=== PATIENT | male | born 1965 | race Caucasian/White ===

== ENCOUNTER → 2016-08-11 | Outpatient (CLI) | payer OTHER ==
[~2016-08-11] MED LIST: ATV/1 PO; CALC500C3 PO; CYCL10TA6 PO; DICL50TA3 PO; GABA-112 PO; LANS15CA6 PO; OXYC-57 PO; RXC5 PO
--- NOTE | 2016-08-11 10:39 | DIAGNOSTIC IMAGING REPORT ---
MRI OF THE CERVICAL SPINE WITHOUT CONTRAST CLINICAL HISTORY: Cervical radiculopathy. COMPARISON: None TECHNIQUE: Utilizing a 1.5 Sayra magnet and dedicated coil, multiplanar, multiecho imaging of the cervical spine was performed without IV contrast. FINDINGS: There is reversal of the normal cervical lordosis. Vertebral body heights are maintained. There is no marrow replacement. No intracanalicular mass or fluid collection is present. Cervical cord signal and caliber are normal. The paravertebral soft tissues are unremarkable. C2-C3: The central canal and neural foramen are patent. C3-C4: There is disc space narrowing with posterior osteophyte complex that indents the ventral aspect of the cord and results in moderate narrowing of the central canal. There is moderate bilateral neural foraminal stenosis due to facet arthrosis and uncovertebral hypertrophy. C4-C5: There is minimal posterior disc osteophyte complex. The central canal is patent. The neural foramen are patent. C5-C6: There is mild posterior disc osteophyte complex results in mild narrowing of the central canal. There is moderate narrowing of the left neural foramen and severe narrowing of the right neural foramen. C6-C7: Posterior disc osteophyte complex results in mild narrowing of the central canal. There is moderate left and severe right neural foraminal stenosis. C7-T1: The central canal and neural foramen are patent IMPRESSION: 1. Moderate central canal stenosis at C3-C4 due to disc bulge with posterior disc osteophyte complex. This indents the ventral aspect of the cord with no cord signal abnormality. Mild central canal stenosis at C5-C6 and C6-C7. 2. Moderate to severe multilevel neural foraminal stenosis, as detailed above. Electronically signed by: Anand Gaspar M.D. 08/11/2016 10:38 AM Dictated Date/Time: 08/11/2016 10:32 AM
== END | disposition home or self-care (01) ==
LOC: C.MRIBC 08:54
PROVIDERS: ATTEND Orthopaedic Surgery Orthopaedic Surgery of the Spine
DX: M54.12 Radiculopathy, cervical region (principal); M48.02 Spinal stenosis, cervical region; M50.20 Other cervical disc displacement, unspecified cervical region; M25.78 Osteophyte, vertebrae

== ENCOUNTER 2016-11-23 08:28 | Observation (INO) | payer OTHER ==
[2016-11-01 11:46] VITALS: BMI 26.0
--- NOTE | 2016-11-01 12:38 | PAT Medication Instructions ---
Service Date November 01, 2016. Current Home Medication List Calcium Carbonate (Tums), 1 TAB PO UD Gabapentin (Neurontin), 100 MG PO TID Lansoprazole (Prevacid), Unknown Dose PO PRN PRN for HEARTBURN Oxycodone/Acetaminophen 5MG/325MG (Percocet 5MG/325MG), 1 TABLET PO Q4H PRN for Pain Medication Instructions For Your Scheduled Surgery - Hold the following medications the morning of surgery: Calcium Carbonate (Tums), 1 TAB PO UD - Take the following medications the morning of surgery with a sip of water: Lansoprazole (Prevacid), Unknown Dose PO PRN PRN for HEARTBURN (if needed) Gabapentin (Neurontin), 100 MG PO TID Oxycodone/Acetaminophen 5MG/325MG (Percocet 5MG/325MG), 1 TABLET PO Q4H PRN for Pain (okay to take up to 4 hours prior to surgery if needed) - Take the following medications as scheduled the night before surgery: Lansoprazole (Prevacid), Unknown Dose PO PRN PRN for HEARTBURN (if needed) Gabapentin (Neurontin), 100 MG PO TID Oxycodone/Acetaminophen 5MG/325MG (Percocet 5MG/325MG), 1 TABLET PO Q4H PRN for Pain (if needed) If you have any questions please call us at [phone] (Dayami Patiño PA-C) or [phone] or [phone]
--- NOTE | 2016-11-01 13:19 | DIAGNOSTIC IMAGING REPORT ---
CHEST PREADMISSION(PA/LAT) CLINICAL HISTORY: PAT preoperative evaluation COMPARISON STUDY: None FINDINGS: The bones soft tissues and hemidiaphragms are normal. The cardiomediastinal silhouette is normal. The lungs are clear. The pulmonary vasculature is normal. IMPRESSION: Negative chest. Electronically signed by: Wade Weber M.D. 11/01/2016 1:18 PM Dictated Date/Time: 11/01/2016 1:16 PM
[2016-11-01 13:48] LABS: BASO % 0.4 %; BASO ABS # 0.02 K/uL (0-0.2); COMPLETE YES; EOS % 2.5 %; HEMATOCRIT 43.3 % (42-52); LYMPH % 30.5 %; LYMPH ABS # 1.74 K/uL (1.2-3.4); MEAN CELL VOLUME 93.3 fL (80-100); MEAN CORPUSCULAR HEMOGLOBIN 31.5 pg (25-34); MEAN CORPUSCULAR HGB CONC 33.7 g/dl (32-36); MONO % 9.1 %; NEUT % 57.5 %; PLATELET COUNT 337 K/uL (130-400); RED BLOOD COUNT 4.64 M/uL (4.7-6.1); WHITE BLOOD COUNT 5.71 K/uL (4.8-10.8)
[2016-11-01 13:55] LABS: URINE APPEARANCE CLEAR (CLEAR); URINE BILIRUBIN NEG (NEG); URINE COLOR YELLOW; URINE NITRITE NEG (NEG); URINE PH 6.5 (4.5-7.5); URINE SPECIFIC GRAVITY 1.023 (1.000-1.030); UROBILINOGEN NEG (NEG)
[2016-11-01 14:00] LABS: MANUAL MICROSCOPIC REQUIRED? NO; REVIEW REQ? NO
[2016-11-01 14:11] LABS: BUN/CREATININE RATIO 15.5 (10-20); CALCIUM 8.8 mg/dl (8.5-10.1); CREATININE 0.81 mg/dl (0.60-1.40); POTASSIUM 4.5 mmol/L (3.5-5.1)
--- NOTE | 2016-11-05 07:15 | HISTORY & PHYSICAL EXAMINATION ---
DATE OF ADMISSION: 11/11/2016 NOTICE TO RECEIVING REPUBLICAN/AGENCY This information is strictly Confidential and protected under [place] law. [place] law prohibits you from making any further disclosure of this information unless further disclosure is expressly permitted by the written consent of the person to whom it pertains or is authorized by law. A general authorization for the release of medical or other information is not sufficient for this purpose. Hospital accepts no responsibility if the information is made available to any other person, INCLUDING THE PATIENT. CHIEF COMPLAINT: Right arm pain. HISTORY: The patient is a middle-aged male with a history of pain that begins in the trapezial region on the right side and radiates down the right arm, most symptomatic from the triceps and below the elbow into the dorsum of the hand. He has some burning dysesthesias in the right hand. He reports some sense of subjective weakness in the right hand with a glove-like paraesthesia. Symptoms have worsened over time; at its worst 10/10. He has known cervical stenosis that is multilevel. MRI shows moderate central stenosis at C3-C4 without matilde cord deformation or myelomalacia. C4-C5 has mild disease. C5-C6 has right-sided foraminal stenosis as does C6-C7 with severe foraminal stenosis. He denies left arm symptoms. He denies balance problems. Denies matilde myelopathic symptoms. He has no incontinence. Neck pain is a secondary concern. He has managed it conservatively for a few months trying to stay out of the operating room so he could attend a family vacation, but symptoms have worsened despite conservative treatment. PAST MEDICAL HISTORY: Sleep apnea for which he does not use CPAP. MEDICATIONS: Gabapentin, methocarbamol, Percocet. ALLERGIES: PENICILLIN. FAMILY HISTORY: Arthritis, diabetes, hypertension, high cholesterol, thyroid disease. PAST SURGICAL HISTORY: Lumbar microdiscectomy in 2002. SOCIAL HISTORY: He is . He is currently employed as an [employer] driver. He uses alcohol 1-2 beers a day. Former smoker. No current smoking. REVIEW OF SYSTEMS: The patient has a history of constipation with pain medication. He reports some nausea with pain medication. Has a history of depression. He denies chest pain, shortness of breath, dyspnea on exertion, pulmonary disease, asthma. PHYSICAL EXAMINATION: The patient stands 6 feet 3 inches tall, weighs 220 pounds. He stands and ambulates with a normal gait with no ataxia. He holds his right arm protracted at the side. He has a positive shoulder abduction sign. He has a positive Spurling's to the right, negative to the left. He has a negative Lhermitte's with range of motion. Cervical range of motion is limited due to pain to the right. He reports subjective sensory disturbance with decreased sensation to light touch in the ulnar 4 digits less so at the thumb. He has a negative Tinel's over the cubital tunnel. He has weakness in label pinker intrinsics and triceps on the right, not profound, somewhat appears pain mediated. He has intact strength in biceps and deltoid, although straining increases pain in the right arm. Left upper extremity has normal strength in all distributions. He has diminished DTRs in the right upper extremity as well as the left. He has a negative Wynn's bilaterally. He has palpable radial pulses that are 2+. He has a regular rate and rhythm with auscultation of the heart and lungs are clear to auscultation bilaterally. He has normal affect other than discomfort and answers questions appropriately. MRI was reviewed as above. EMG nerve conduction study was pending. ASSESSMENT AND PLAN: The patient has a right upper extremity radiculopathy, presumably primarily due to foraminal stenosis C5-C6 and C6-C7. He does not have a matilde myelopathy and therefore doing a multilevel anterior cervical was chosen to be avoided. We discussed that if we did an anterior approach a multilevel fusion may be necessary and he desires to avoid this. After discussion of risks, benefits and expected outcomes we agreed upon a right C5-C6 and C6-7 laminoforaminotomy to address the foraminal stenosis causing the right arm symptoms. The risk of ongoing symptoms and need for secondary anterior procedure were discussed and he is agreeable to this.
[2016-11-23] VITALS (8 sets, daily range): BP systolic 100–151; BP diastolic 61–83; PULSE 71–91; TEMP 36.5–36.9; O2SAT 95–99; Ht 190.5 cm; Wt 96.9 kg
[~2016-11-23] VITALS: Ht 190.5 cm; Wt 96.9 kg
[~2016-11-23 08:28] MED LIST changes: -ATV/1 PO; +CLINDAMYCIN 600 MG/54 ML D5W 54 ML IV SCH; +CLINDAMYCIN 600 MG/54 ML D5W IV SCH; +CLINDAMYCIN PHOS 150 MG/ML 2 ML VIAL IV SCH; -CYCL10TA6 PO; +CeleBREX 200 MG CAP PO SCH; -DICL50TA3 PO; +LACTATED RINGER'S 1000ML 1,000 ML IV SCH; +PREGABALIN 75 MG CAP PO SCH; -RXC5 PO
[2016-11-23] MEDS ORDERED: MIDAZOLAM HCL 1 MG/ML 2ML VIAL ONE (09:10)
[2016-11-23] MEDS ORDERED: FENTANYL CITRATE INJ 50 MCG/1 ML 2 ML VIAL ONE ×3 (09:10→11:02)
[2016-11-23] MEDS ORDERED: REMIFENTANIL 1 MG VIAL ONE ×2 (09:11→10:51)
[2016-11-23] MEDS ORDERED: PHENYLEPHRINE 100MCG/ML 5ML SYR IV PRN (09:15)
[2016-11-23] MEDS ORDERED: MEPERIDINE HCL 25 MG/ML CARP IV PRN (09:15)
[2016-11-23] MEDS ORDERED: EpHEDrine SULFATE INJ 50 MG/ML AMP IV PRN (09:15)
[2016-11-23] MEDS ORDERED: ONDANSETRON INJ 2 MG/ML 2 ML VIAL IV PRN ×2 (09:15→12:15)
[2016-11-23] MEDS ORDERED: LABETALOL HCL IV 5 MG/ML 20ML IV PRN (09:15)
[2016-11-23] MEDS ORDERED: NALOXONE HCL 0.4 MG/1 ML VIAL/CARP IV PRN (09:15)
[2016-11-23] MEDS ORDERED: ATROPINE SULFATE 0.1 MG/ML 5ML SYR IV PRN (09:15)
[2016-11-23] MEDS ORDERED: FLUMAZENIL 0.1 MG/1 ML 10 ML VIAL IV PRN (09:15)
--- NOTE | 2016-11-23 09:28 | History & Physical Bridge Note ---
H&P Re-Evaluation Bridge Note: I have examined the patient, reviewed the History & Physical and in the interval since the performance of the History & Physical I have noted the following changes of clinical significance: No changes noted
[2016-11-23] MEDS ORDERED: PROPOFOL IV EMULSION 10 MG/ML 100 ML VIAL IV ONE (09:39)
[2016-11-23] MEDS ORDERED: THROMBIN FOR SOLN 20000 UNIT KIT ONE (09:39)
[2016-11-23] MEDS ORDERED: BUPIVACAINE/EPINEPHRINE 0.5% MPF 1:200,000 30 ML VIAL ONE (09:39)
[2016-11-23] MEDS ORDERED: HEPARIN SOD (PORCINE) 1000 UNIT/ML 10 ML VIAL ONE (09:39)
[2016-11-23] MEDS ORDERED: BACITRACIN 50000 UNIT VIAL ONE (09:39)
[2016-11-23] MEDS ORDERED: THROMBIN 5000 UNITS KIT ONE (09:39)
[2016-11-23] MEDS ORDERED: SCOPOLAMINE 1.5 MG TDSY TD ONE (10:05)
[2016-11-23] MEDS ORDERED: HYDROmorphone INJ 2 MG/ML SYR/VIAL ONE (11:02)
[2016-11-23] MEDS ORDERED: LIDOCAINE HCL 2% 2 ML VIAL (20MG/ML) ONE (11:10)
[2016-11-23] MEDS ORDERED: ONDANSETRON INJ 2 MG/ML 2 ML VIAL ONE (11:10)
[2016-11-23] MEDS ORDERED: SUCCINYLCHOLINE CHLORIDE 20 MG/ML 10 ML VIAL IV ONE (11:10)
[2016-11-23] MEDS ORDERED: PROPOFOL IV EMULSION 10 MG/ML 20 ML VIAL IV ONE ×2 (11:10→11:21)
[2016-11-23] MEDS ORDERED: DEXAMETHASONE SOD INJ 4 MG/ML VIAL ONE (11:10)
[2016-11-23] MEDS ORDERED: KETAMINE HCL INJ 50 MG/ML 10 ML VIAL ONE (11:23)
[2016-11-23] MEDS ORDERED: FLOSEAL HEMOSTATIC MATRIX 5ML TOP ONE (11:31)
[2016-11-23] MEDS ORDERED: BETADINE OINTMENT (PACKETS) TOP ONE (11:32)
--- NOTE | 2016-11-23 12:03 | [facility] Post Operative Brief Note ---
Immediate Operative Summary Operative Date November 23, 2016. Pre-Operative Diagnosis Upper extremity radiculopathy, presumably primarily due to foraminal stenosis C5-C6 and C6-C7 Post-Operative Diagnosis Upper extremity radiculopathy, presumably primarily due to foraminal stenosis C5-C6 and C6-C7 Procedure(s) Performed C5-C6, C6-C7 Right Laminoforaminotomy Surgeon Dr. Bairon Chin Sliver Cutter Surgeon(s) None Estimated Blood Loss 50ml Findings dict Specimens None per surgeon
[2016-11-23] MEDS: HYDROmorphone INJ 1 MG/ML SYR IV PRN ×5 (12:08→21:08)
[2016-11-23] MEDS ORDERED: ACETAMINOPHEN 325 MG TAB PO PRN (12:15)
[2016-11-23] MEDS ORDERED: LORAZEPAM 1 MG TAB PO PRN ×2 (12:15→13:45)
[2016-11-23] MEDS ORDERED: LORAZEPAM INJ 1 MG in SYRINGE 0 ML IV PRN (12:15)
[2016-11-23] MEDS ORDERED: OXYCODONE HCL IR 5 MG TAB (IMMEDIATE RELEASE) PO PRN (12:15)
[2016-11-23] MEDS: MoRPHine SULFATE 10 MG/ML CARP/VIAL IV PRN ×2 (12:36→12:50)
--- NOTE | 2016-11-23 12:42 | Anesthesiology Progress Note ---
Anesthesia Post Op Note Date & Time November 23, 2016 at 12:41 Vital Signs Pain Intensity: 4 Vital Signs Past 12 Hours Date Time Temp Pulse Resp B/P Pulse Ox O2 Delivery O2 Flow Rate FiO2 11/23/16 12:30 80 16 168/92 100 Nasal Cannula 2 11/23/16 12:20 78 23 169/97 100 Nasal Cannula 2 11/23/16 12:10 80 20 172/99 100 Mask 10 11/23/16 12:00 88 13 184/110 100 Mask 10 11/23/16 11:52 36.2 86 14 184/106 98 Mask 10 11/23/16 09:10 36.5 74 18 151/83 96 Room Air Notes Mental Status: alert / awake / arousable, participated in evaluation Pt Amnestic to Procedure: Yes Nausea / Vomiting: adequately controlled Pain: adequately controlled, improving with treatment Airway Patency, RR, SpO2: stable & adequate BP & HR: stable & adequate Hydration State: stable & adequate Anesthetic Complications: no major complications apparent The patient appears to be resting comfortably. When he is aroused, he states that his pain is a 10, but then falls back asleep.
--- NOTE | 2016-11-23 13:03 | OPERATIVE REPORT ---
DATE OF OPERATION: 11/23/2016 PREOPERATIVE DIAGNOSES: 1. Cervical radiculopathy. 2. Cervical foraminal stenosis, right C5-C6 and C6-C7. POSTOPERATIVE DIAGNOSIS: Same. PROCEDURES: Right C6-C7 and C5-C6 laminoforaminotomies. SURGEON: Dr. Chin. ANESTHESIA: General endotracheal anesthesia. COMPLICATIONS: None. ESTIMATED BLOOD LOSS: Minimal. OPERATION AND FINDINGS: PROCEDURE: After identification of patient and operative level, he was brought to the OR where he underwent induction of general anesthesia. He then had Gamino tongs applied to the skull with 60 mmHg and pressure on the pin gauge. I then positioned him prone on a spine table with all bony prominences well padded. The arms were tucked at sides and well padded. Shoulders were taped distally and the posterior neck was sterilely prepped and draped in usual fashion. Spinal cord monitoring signals were obtained and confirmed to have good signals. I then localized skin incision with lateral fluoroscopy and a spinal needle after performing a timeout and then subsequent infiltrated the skin with Marcaine with epinephrine. I made skin incision over spinous processes of C5, C6, and C7, I exposed the right C5-C6 and C6-C7 interlaminar window. I placed a safety belt installer retractor, confirmed levels with a marker at the operative levels and then marked these levels. I then used a byron to create a small window removing the caudal edge of the C5 and C6 lamina and the medial 25% of the facets at C5-C6 and C6-C7. I then removed some of the ligamentum flavum and identified the exiting nerve root at each level and then performed foraminotomies at C5-C6 and C6-C7 on the right. I was able to pass the probe along each nerve root and confirm adequate decompression. I then reconfirmed level with a marker in the C5-C6 foramen. I then irrigated with bacitracin solution and applied FloSeal for hemostasis. I then confirmed hemostasis and closed in layered fashion. All sponge and needle counts were correct at the end of the case. I attest to the content of the Intraoperative Record and any orders documented therein. Any exceptio ns are noted below.
--- NOTE | 2016-11-23 13:06 | DIAGNOSTIC IMAGING REPORT ---
INTRAOPERATIVE RADIOGRAPH CLINICAL HISTORY: Posterior cervical spine laminectomy. Fluoroscopy time: 6 seconds. FINDINGS: A single spot fluoroscopic view of the cervical spine is presented. A surgical probe projects posteriorly at the C5-C6 disc space. IMPRESSION: Intraoperative image from cervical spinal laminectomy. See operative report for detailed findings. Electronically signed by: Dev Sheppard M.D. 11/23/2016 1:05 PM Dictated Date/Time: 11/23/2016 1:03 PM
[2016-11-23] MEDS ORDERED: IV FLUIDS COMPLETED PRN (14:00)
[2016-11-23] MEDS ORDERED: LORAZEPAM INJ 1 MG in SYRINGE 0.5 ML IV PRN (14:00)
[2016-11-23] MEDS: DEXAMETHASONE INJ 6 MG in SYRINGE 0 ML IV SCH ×2 (14:10→22:16)
[2016-11-23] MEDS: SODIUM CHLORIDE 0.9% 1000ML 1,000 ML IV SCH (14:11)
[2016-11-23] MEDS: OXYCODONE HCL IR 5 MG TAB (IMMEDIATE RELEASE) PO PRN ×3 (14:12→23:40)
[2016-11-23] MEDS ORDERED: NURSING VERBAL MED ORDER ONE (15:00)
[2016-11-23] MEDS: POLYETHYLENE (MIRALAX) 17 GM PACK PO SCH ×2 (18:19→23:39)
[2016-11-23] MEDS: CLINDAMYCIN IV 600 MG in DEXTROSE 5% ADD-VANTAGE 50ML 50 ML IV SCH (18:20)
[2016-11-23] MEDS: GABAPENTIN 100 MG CAP PO SCH (20:45)
[2016-11-24] MEDS: CLINDAMYCIN IV 600 MG in DEXTROSE 5% ADD-VANTAGE 50ML 50 ML IV SCH ×2 (02:19→10:18)
[2016-11-24] MEDS: SODIUM CHLORIDE 0.9% 1000ML 1,000 ML IV SCH (02:20)
[2016-11-24] MEDS: HYDROmorphone INJ 1 MG/ML SYR IV PRN ×3 (02:21→10:25)
[2016-11-24 03:00] VITALS: BP 127/67; PULSE 79; TEMP 36.8; O2SAT 96
[2016-11-24] MEDS: DEXAMETHASONE INJ 6 MG in SYRINGE 0 ML IV SCH (05:35)
[2016-11-24] MEDS: POLYETHYLENE (MIRALAX) 17 GM PACK PO SCH ×4 (05:35→23:58)
--- NOTE | 2016-11-24 07:46 | Anesthesiology Progress Note ---
Anesthesia Post Op Note Date & Time November 24, 2016 at 07:46 Vital Signs Pain Intensity: 9.0 Vital Signs Past 12 Hours Date Time Temp Pulse Resp B/P Pulse Ox O2 Delivery O2 Flow Rate FiO2 11/24/16 03:00 36.8 79 16 127/67 96 Room Air 11/23/16 23:45 36.9 84 16 125/64 96 Room Air 11/23/16 23:30 Room Air Notes Mental Status: alert / awake / arousable, participated in evaluation Pt Amnestic to Procedure: Yes Nausea / Vomiting: adequately controlled Pain: adequately controlled Airway Patency, RR, SpO2: stable & adequate BP & HR: stable & adequate Hydration State: stable & adequate Anesthetic Complications: no major complications apparent
[2016-11-24] MEDS: OXYCODONE HCL IR 5 MG TAB (IMMEDIATE RELEASE) PO PRN ×4 (07:53→23:03)
[2016-11-24] MEDS: GABAPENTIN 100 MG CAP PO SCH ×3 (09:00→20:49)
[2016-11-24 13:28] VITALS: BP 127/59; PULSE 76; TEMP 36.9; O2SAT 98
--- NOTE | 2016-11-24 13:31 | Orthopedic Progress Note ---
Orthopedic Progress Note Date of Service November 24, 2016. Subjective Post OP Day: 1 Reports: feeling well, pain controlled w PO medications, Denies: SOB, calf pain , chest pain, complaints, light headedness, nausea / vomiting, using TYPING POOL SUPERVISOR Objective calves soft nontender, N/V intact, incision C/D/I, A&O x3 Date Time Temp Pulse Resp B/P Pulse Ox O2 Delivery O2 Flow Rate FiO2 11/24/16 13:28 36.9 76 18 127/59 98 Room Air 11/24/16 03:00 36.8 79 16 127/67 96 Room Air 11/23/16 23:45 36.9 84 16 125/64 96 Room Air 11/23/16 23:30 Room Air 11/23/16 19:05 36.8 91 18 126/67 95 Room Air 11/23/16 16:20 36.8 73 18 100/61 11/23/16 15:50 98 Room Air 11/23/16 14:28 36.8 77 16 126/76 11/23/16 13:51 36.7 74 16 133/77 98 Nasal Cannula 2.0 Assessment & Plan Assessment: stable postop, d/c today or tomorrow based upon comfort
[2016-11-24] MEDS ORDERED: RXC5 PO (13:33)
--- NOTE | 2016-11-24 13:34 | Discharge Instructions ---
Discharge Instructions Date of Service November 24, 2016. Admission Reason for Admission: Spinal Stenosis Discharge Discharge Diagnosis / Problem: same Discharge Goals Goal(s): Decrease discomfort Activity Recommendations Activity Limitations: per Instructions/Follow-up section . Instructions / Follow-Up Instructions / Follow-Up ACTIVITY RECOMMENDATIONS: SELF CARE INSTRUCTIONS AFTER CERVICAL FUSIONS 1. No smoking. Smoking drastically decreases the chance of a solid fusion. 2. No bending, lifting more than 5 pounds, or twisting (roll like a log when turning in bed). 3. You may shower 3 days after surgery. Thoroughly dry wound. Do not soak in the tub. 4. Cervical collar: Must be worn at all times including sleeping. You may remove the brace only to bath, eat and if you are sitting in a recliner. 5. Please walk as much as you can for exercise. Gradually increase the distance that you walk as your endurance increases. SPECIAL CARE INSTRUCTIONS: VERY IMPORTANT TO READ AND REVIEW A. Do not take any anti-inflammatory medications (i.e. Indocin, Advil, Aspirin, Naprosyn, Aleve, Motrin, etc.) as these may inhibit the chance of a solid fusion. Tylenol is okay to take. B. Your surgical incision has been closed with a cosmetic suture under the skin that will dissolve in about 6 weeks. In 14 days, you can use a pair of clean scissors and cut the suture that is left outside of the skin at the ends of your incision. C. Complications are uncommon, but please contact us if you have any signs or symptoms of: 1. wound infection (fever higher than 102.5 degrees F, redness, separation of wound, drainage, or increasing pain from the incision) 2. blood clots in legs (pain, swelling, redness and warmth in legs) 3. urinary tract infection (fever higher than 102.5 degrees, burning upon urination or increased frequency of urination) 4. nerve problems (inability to walk on your toes or heels, numbness, loss of bowel or bladder control) 5. any other symptoms that concern you. D. Please call the office at if you have any concerns or questions about your operation or recovery. MANAGING PAIN AFTER SPINAL SURGERY 1. Narcotic medication is intended for short-term use and will be provided for surgical pain. Surgical pain usually lasts for a period of 4-6 weeks. Narcotic medication includes Percocet, Vicodin, Darvocet, Tylenol #3 or Lortab. 2. Longer-term pain is more appropriately treated with non-narcotic medication such as Tylenol ES. 3. Muscle spasm is not appropriately treated with narcotics. Muscle relaxers such as Soma, Flexeril or Skelaxin can be used along with Tylenol ES. 4. Remember that we all live with some "aches and pains". This is not unusual or uncommon after an injury or as we get older. 5. We will provide appropriate medication within the normal guidelines of their prescribed use. We will also be very cautious and aware of potential abuse and extended duration of patients' medication needs. 6. Please allow 2-3 days to process refills. Prescriptions will not be mailed but must be picked up at the office. FOLLOW UP VISIT: Keep your scheduled follow-up appointment. Any questions, please call the office at . Current Hospital Diet Patient's current hospital diet: Regular Diet Discharge Diet Recommended Diet: Regular Diet Procedures Procedures Performed: C5-C6, C6-C7 Right Laminoforaminotomy Pending Studies Studies pending at discharge: no Medical Emergencies . Who to Call and When: Medical Emergencies: If at any time you feel your situation is an emergency, please call 911 immediately. . Non-Emergent Contact Non-Emergency issues call your: Surgeon . "Provider Documentation" section prepared by Bairon Chin. . VTE Core Measure Inpt VTE Proph given/why not?: SCD's [place] Drug Monitoring Program Search Results: patient reviewed within database, no issues identified
[2016-11-24] MEDS ORDERED: SOD PHOSPHATE/SOD BIPHOSPHATE ENEMA 132 ML BTL PR PRN (13:45)
[2016-11-24] MEDS ORDERED: MAGNESIUM HYDROXIDE SUSP 30 ML UDC PO ONE (13:45)
[2016-11-24 16:25] VITALS: BP 91/55; PULSE 64; TEMP 36.8; O2SAT 96
[2016-11-24 18:55] VITALS: BP 121/68; PULSE 62; TEMP 36.8; O2SAT 98
[2016-11-24 22:45] VITALS: BP 137/76; PULSE 63; TEMP 36.9; O2SAT 98
[2016-11-25] MEDS: OXYCODONE HCL IR 5 MG TAB (IMMEDIATE RELEASE) PO PRN ×3 (03:32→12:30)
[2016-11-25] MEDS: POLYETHYLENE (MIRALAX) 17 GM PACK PO SCH ×2 (06:03→12:31)
[2016-11-25 07:43] VITALS: BP 124/72; PULSE 61; TEMP 36.8; O2SAT 95
[2016-11-25 07:58] VITALS: O2SAT 95
[2016-11-25] MEDS: GABAPENTIN 100 MG CAP PO SCH ×2 (08:55→13:50)
[2016-11-25 11:47] VITALS: BP 124/70; PULSE 72; TEMP 36.8; O2SAT 95
[2016-11-25 14:02] VITALS: BP 124/70; PULSE 72; TEMP 36.8; O2SAT 95
--- NOTE | 2016-11-30 09:45 | Discharge Summary ---
Orthopedic Discharge Summary Admission Date/Reason November 23, 2016 at 12:06 Spinal Stenosis. Discharge Date/Disposition November 25, 2016 Home Diagnosis Principal Diagnosis: same Procedure(s) Performed cervical foraminotomy Medication Reconciliation New Medications: Oxycodone HCl (Oxycodone HCl) 5 Mg Tab 10 MG PO Q4H PRN for severe pain (pain scale 7-10), #60 TAB Continued Medications: Calcium Carbonate (Tums) 500 Mg Chew 1 TAB PO UD Gabapentin (Neurontin) 100 Mg Cap 100 MG PO TID, CAP Lansoprazole (Prevacid) Unknown Strength Capcr Unknown Dose PO PRN PRN for HEARTBURN , CAP Discontinued Medications: Oxycodone/Acetaminophen 5MG/325MG (Percocet 5MG/325MG) Tab 1 TABLET PO Q4H PRN for Pain, TAB PAIN Admission Physical Exam As per Admitting History & Physical. Hospital Course Patient was admitted for elective cervical surgery, he tolerated the procedure without complications and was transferred to floor. He remained hemodynamically stable, had his pain controlled on oral medications, ambulated and was discharged in stable condition. Discharge Instructions Please refer to the electronic Patient Visit Report (Discharge Instructions) for additional information.
== END 2016-11-25 14:15 | disposition home or self-care (01) ==
LOC: ENRESERVDT → ENRESERVTM → C.ACU 08:28 → C.3E 12:06
PROVIDERS: ADMIT Orthopaedic Surgery Orthopaedic Surgery of the Spine; ATTEND Orthopaedic Surgery Orthopaedic Surgery of the Spine
PROC: 0PN Upper Bones, Release (ICD-10-PCS; principal; 2016-11-23 10:00)
DX: M48.02 Spinal stenosis, cervical region (principal); G47.30 Sleep apnea, unspecified; Z79.899 Other long term (current) drug therapy; Z87.891 Personal history of nicotine dependence

== ENCOUNTER 2016-11-30 05:20 | Emergency (ER) | payer OTHER ==
[~2016-11-30] VITALS: Ht 190.5 cm; Wt 90.0 kg
[~2016-11-30 05:20] MED LIST changes: -CLINDAMYCIN 600 MG/54 ML D5W 54 ML IV SCH; -CLINDAMYCIN 600 MG/54 ML D5W IV SCH; -CLINDAMYCIN PHOS 150 MG/ML 2 ML VIAL IV SCH; -CeleBREX 200 MG CAP PO SCH; -LACTATED RINGER'S 1000ML 1,000 ML IV SCH; -OXYC-57 PO; -PREGABALIN 75 MG CAP PO SCH; +RXC5 PO
[2016-11-30] MEDS ORDERED: ASPIRIN 81 MG CHEW PO STA (05:28)
[2016-11-30] MEDS ORDERED: LORAZEPAM 2 MG/ML 1 ML VIAL IV STA (05:28)
[2016-11-30 05:37] VITALS: O2SAT 100; Ht 190.5 cm; Wt 90.0 kg
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
[2016-11-30 05:55] LABS: BASO % 0.3 %; BASO ABS # 0.03 K/uL (0-0.2); COMPLETE YES; EOS % 1.4 %; HEMATOCRIT 44.1 % (42-52); IG% 0.3 %; LYMPH % 27.4 %; LYMPH ABS # 2.75 K/uL (1.2-3.4); MEAN CORPUSCULAR HEMOGLOBIN 31.5 pg (25-34); MEAN CORPUSCULAR HGB CONC 35.8 g/dl (32-36); MEAN PLATELET VOLUME 9.3 fL (7.4-10.4); MONO % 9.1 %; NEUT % 61.5 %; PLATELET COUNT 351 K/uL (130-400); RED BLOOD COUNT 5.01 M/uL (4.7-6.1); WHITE BLOOD COUNT 10.05 K/uL (4.8-10.8)
[2016-11-30 06:13] LABS: BUN/CREATININE RATIO 13.9 (10-20); CALCIUM 9.4 mg/dl (8.5-10.1); CREATININE 1.1 mg/dl (0.60-1.40); POTASSIUM 3.4 mmol/L (3.5-5.1)
[2016-11-30 06:14] VITALS: BP 130/91
[2016-11-30 06:15] VITALS: PULSE 77; O2SAT 90
[2016-11-30] MEDS ORDERED: ATV/1 PO (06:23)
--- NOTE | 2016-11-30 06:31 | DIAGNOSTIC IMAGING REPORT ---
CHEST ONE VIEW PORTABLE CLINICAL HISTORY: Atypical chest pain COMPARISON STUDY: 11/01/2016 FINDINGS: The cardiac and mediastinal contours are normal. There is no evidence of focal pulmonary consolidation. There is no evidence of failure. No pleural effusions are visualized.[ IMPRESSION: No active disease in the chest. Electronically signed by: Rajesh Ivey M.D. 11/30/2016 6:30 AM Dictated Date/Time: 11/30/2016 6:30 AM
[2016-11-30] MEDS ORDERED: ONDANSETRON HOME PACK 4MG OD TAB PO ONE (06:45)
[2016-11-30] MEDS ORDERED: ONDANSETRON HOME PACK 4MG OD TAB ONE (06:45)
== END 2016-11-30 06:48 | disposition home or self-care (01) ==
LOC: EDBD 05:20 → C.EDB 05:21
DX: F41.9 Anxiety disorder, unspecified (principal); G89.18 Other acute postprocedural pain; K21.9 Gastro-esophageal reflux disease without esophagitis; M48.02 Spinal stenosis, cervical region; M51.36 Other intervertebral disc degeneration, lumbar region; Z98.890 Other specified postprocedural states; Z87.891 Personal history of nicotine dependence; Z79.899 Other long term (current) drug therapy; Z88.0 Allergy status to penicillin; Z88.8 Allergy status to other drugs, medicaments and biological substances; Z83.3 Family history of diabetes mellitus; Z82.49 Family history of ischemic heart disease and other diseases of the circulatory system

== ENCOUNTER 2017-02-28 13:18 | Emergency (ER) | payer OTHER ==
[~2017-02-28] VITALS: Ht 188 cm; Wt 100.4 kg
[2017-02-28 13:26] VITALS: TEMP 36.6; Ht 188 cm; Wt 100.4 kg
[2017-02-28] MEDS ORDERED: DICL50TA3 PO (13:58)
[2017-02-28] MEDS ORDERED: OXYCODONE/ACETAMINOPHEN 5-325 TAB PO ONE (15:00)
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
[2017-02-28 15:24] VITALS: BP 152/100; PULSE 58; O2SAT 97
[2017-02-28] MEDS ORDERED: OXYC-57 PO (15:25)
[2017-02-28] MEDS ORDERED: CYCL10TA6 PO (15:25)
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
== END 2017-02-28 15:31 | disposition home or self-care (01) ==
LOC: C.EDB 13:19 → C.EDD 15:31
DX: M54.2 Cervicalgia (principal); V89.1XXA Person injured in unspecified nonmotor-vehicle accident, nontraffic, initial encounter; R20.2 Paresthesia of skin; F41.9 Anxiety disorder, unspecified; G47.30 Sleep apnea, unspecified; Z79.899 Other long term (current) drug therapy

== ENCOUNTER → 2017-03-10 | Outpatient (CLI) | payer OTHER ==
[~2017-03-10] MED LIST changes: -CALC500C3 PO; +CYCL10TA6 PO; +DICL50TA3 PO; -GABA-112 PO; +GADAVIST IV PRN; -LANS15CA6 PO; +OXYC-57 PO; -RXC5 PO
--- NOTE | 2017-03-10 10:58 | DIAGNOSTIC IMAGING REPORT ---
MRI OF THE CERVICAL SPINE COMBO CLINICAL HISTORY: Cervical radiculopathy. COMPARISON STUDY: MRI of the cervical spine dated 08/11/2016. CT of the cervical spine dated 02/28/2017. TECHNIQUE: MRI of the cervical spine is performed utilizing various T1 and T2-weighted sequences in the axial and sagittal planes. Contrast-enhanced sequences were acquired following the IV administration of 10 cc of Gadavist. The examination is moderately compromised by motion artifact. FINDINGS: Cervical spine: Vertebral body height is maintained throughout the cervical spine. Alignment is preserved. There is straightening of the cervical lordosis with reversal centered at C4. The atlantodental articulation appears maintained. Degenerative endplate edema is noted at C3-C4. Small anterior osteophytes are seen throughout. The spinous processes appear intact. Partial right hemilaminectomy is questioned at C6. Intervertebral discs: There is degenerative disc desiccation seen throughout the cervical spine. Mild loss of height is seen from C3 to C4 through C6 to C7. Spinal cord: The cervical spinal cord is normal in morphology and signal intensity. No abnormal enhancement is identified on the postcontrast series. C2-C3: Uncovertebral and facet arthropathy cause mild left neural foraminal stenosis. The central canal is clear. C3-C4: A posterior disc osteophyte complex effaces the ventral cord. Uncovertebral and facet arthropathy cause moderate left and mild right neural foraminal stenosis. The minimum AP diameter at this level measures 7 mm. C4-C5: A posterior disc osteophyte complex abuts the ventral cord. Uncovertebral arthropathy is of no consequence. The neural foramina appear clear. C5-C6: A posterior disc osteophyte complex eccentric to the left effaces the ventral cord. Uncovertebral and facet arthropathy cause moderate bilateral neural foraminal stenosis. C6-C7: A posterior disc osteophyte complex abuts the ventral cord. Uncovertebral and facet arthropathy cause moderate to severe left greater than right neural foraminal stenosis. C7-T1: Unremarkable. Soft tissues: There is edema within the posterior soft tissues extending from C3 to C6. Foci of susceptibility artifact may represent suture material. There is nonspecific enhancement in this region, likely related to granulation tissue. No organized fluid collection is seen. The prevertebral soft tissues are within normal limits. Brain parenchyma: Partially visualized brain parenchyma at the skull base is grossly normal. IMPRESSION: 1. The cervical spinal cord is normal in morphology and signal intensity. 2. Multilevel cervical spondylosis as detailed above. This is similar in appearance to the 08/11/2016 examination. 3. Postoperative change and edema is suggested in the posterior paraspinous soft tissues. No organized fluid collection is identified. There has also been possible partial laminectomy on the right at C6. Correlation with the patient's operative history will be required. 4. Degenerative disc disease and endplate edema at C3-C4 as above. Dictated: 03/10/2017 9:43 AM Transcribed: 03/10/2017 10:58 AM ELIA_Cindy Electronically signed by: Dev Sheppard M.D. 03/10/2017 10:59 AM Dictated Date/Time: 03/10/2017 9:43 AM
== END | disposition home or self-care (01) ==
LOC: C.MRIBC 08:18
PROVIDERS: ATTEND Orthopaedic Surgery Orthopaedic Surgery of the Spine
DX: M54.12 Radiculopathy, cervical region (principal)

== ENCOUNTER → 2017-05-24 | Outpatient (CLI) | payer OTHER ==
[~2017-05-24] MED LIST changes: -CYCL10TA6 PO; -GADAVIST IV PRN
--- NOTE | 2017-05-24 16:27 | DIAGNOSTIC IMAGING REPORT ---
CHEST 2 VIEWS ROUTINE CLINICAL HISTORY: R50.9 [id number] fever. Cough. COMPARISON STUDY: 11/30/2016 FINDINGS: Minimal parenchymal infiltrate medial right base. Lungs otherwise appear clear. Diaphragms smooth. Costophrenic angles are sharp. IMPRESSION: Small parenchymal infiltrate medial right base. The above report was generated using voice recognition software. It may contain grammatical, syntax or spelling errors. Electronically signed by: Wade Weber M.D. 05/24/2017 4:25 PM Dictated Date/Time: 05/24/2017 4:25 PM
== END | disposition home or self-care (01) ==
LOC: C.RAD1850 16:11
PROVIDERS: ATTEND Internal Medicine
DX: R50.9 Fever, unspecified (principal); R05 Cough

== ENCOUNTER → 2017-07-08 | Outpatient (CLI) | payer OTHER ==
--- NOTE | 2017-07-08 13:37 | DIAGNOSTIC IMAGING REPORT ---
CHEST 2 VIEWS ROUTINE HISTORY: 51 years-old Male Z87.01 History of pneumoniaf/u on recent [id number] follow-up study in a patient with pneumonia COMPARISON: Chest radiograph 05/24/2017, 11/30/2016, 11/01/2016 TECHNIQUE: PA and lateral views of the chest FINDINGS: Cardiomediastinal and hilar silhouettes are within normal limits. There is no pneumothorax or pleural effusion. There is improved aeration of the medial aspect right lung base within the region of the right middle lobe with only persistent ill-defined hazy opacities noted within this region. No new focal airspace consolidations identified. The bones appear grossly intact. IMPRESSION: Improved aeration of the medial right lung base. The above report was generated using voice recognition software. It may contain grammatical, syntax or spelling errors. Electronically signed by: Kennedy Ahuja M.D. 07/08/2017 1:36 PM Dictated Date/Time: 07/08/2017 1:33 PM
== END | disposition home or self-care (01) ==
LOC: C.RAD1850 13:25
PROVIDERS: ATTEND Internal Medicine
DX: Z87.01 Personal history of pneumonia (recurrent) (principal)

== ENCOUNTER 2017-07-28 15:06 | Emergency (ER) | payer OTHER ==
[~2017-07-28] VITALS: Ht 157.5 cm; Wt 100.8 kg
[2017-07-28 15:11] VITALS: Ht 157.5 cm; Wt 100.8 kg
--- NOTE | 2017-07-28 15:41 | EMERGENCY ROOM VISIT NOTE ---
History First contact with patient: 15:17 Chief Complaint: FLU LIKE SX Stated Complaint: POSSIBLE PNEUMONIA History of Present Illness 51M with a PMHx of anxiety presents to the ER with a one day history of anxiety and viral symptoms. Pt was sent by Dr. Johnston. Pt c/o chills, sweats, aches, diarrhea and chest pains all starting yesterday evening. Pt works as a tanker truck driver and his son has been sick recently with a virus. He is also very stressed because he has to take care of his 18yr special needs daughter. He got his Pneumonia and flu shot two weeks ago. Pt had a recent pneumonia that had resolved but he is worried that this is a new pneumonia. Pt is taking an Ibuprofen for his symptoms. PMHx: Anxiety Attacks since summer. Takes Percocet PRN for knee pain. Denies MIs ROS: no palpitations,no nausea, no vomiting, no rash. Source of History: patient History Limited By: other (pts anxiety) Onset: yesterday Symptom Intensity: severe Timing: constant Associated Symptoms: + chills, + chest pain, + diarrhea Review of Systems See HPI for pertinent positives and negatives. A total of ten systems were reviewed and were otherwise negative. 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 Surgical Problems: (1) Previous back surgery Family History Diabetes mellitus FH: heart disease Hypertension Social History Smoking Status: Former Smoker Alcohol Use: occasionally Drug Use: none Marital Status: Occupation Status: employed Current/Historical Medications Scheduled Diclofenac (Voltaren), 50 MG PO BID Scheduled PRN Cyclobenzaprine HCl (Cyclobenzaprine HCl), 10 MG PO Q6 PRN for Muscle Spasms Ondansetron Odt (Zofran Odt), 8 MG SL Q6H PRN for Nausea Oxycodone/Acetaminophen 5MG/325MG (Percocet 5MG/325MG), 1-2 TABS PO Q6H PRN for Pain Physical Exam Vital Signs Date Time Temp Pulse Resp B/P (MAP) Pulse Ox O2 Delivery O2 Flow Rate FiO2 07/28/17 17:31 90 20 171/105 99 Room Air 07/28/17 15:11 36.7 86 16 144/91 95 Room Air Physical Exam Gen: No acute distress. Pt is visibly anxious. HEENT: Head - normocephalic and atraumatic. Pupils are equal, round, and reactive to light. Extraocular eye muscles are intact and sclera are anicteric. Ears - bilaterally patent canals with noninjected tympanic membranes and no evidence of hemotympanum. Nose - moist nasal mucosa without discharge. Mouth - moist buccal mucosa. Oropharynx is nonerythematous and there is no tonsillar exudate or edema noted. Neck: Supple; no JVD, nuchal rigidity, cervical lymphadenopathy, or auscultated bruits. Heart: Regular rate and rhythm. There is a normal S1 and S2 with no murmurs, clicks, or gallops appreciated. Lungs: Clear to auscultation bilaterally with no wheezes, rales, or rhonchi. Abdomen: Soft, completely nontender, nondistended, with good bowel sounds. There are no palpable pulsatile masses or hepatosplenomegaly. There is no guarding, rigidity, or rebound noted. Extremities: No evidence of cyanosis, clubbing, or edema. There are easily palpable peripheral pulses. Neuro: The patient is awake and alert, oriented to day, time, and place. Muscle strength is 5/5 in all 4 extremities. The patient has equal circulation analyst strength and equal pedal push and pull. There are no cerebellar signs. Medical Decision & Procedures ER Provider Diagnostic Interpretation: CHEST ONE VIEW PORTABLE CLINICAL HISTORY: SOB dyspnea COMPARISON STUDY: No previous studies for comparison. FINDINGS: The bones soft tissues and hemidiaphragms are normal. The cardiomediastinal silhouette is normal. The lungs are clear. The pulmonary vasculature is normal. IMPRESSION: Negative chest. Laboratory Results 07/28/17 15:05 Red Blood Count 5.10, Mean Corpuscular Volume 90.8, Mean Corpuscular Hemoglobin 31.6, Mean Corpuscular Hemoglobin Concent 34.8, Mean Platelet Volume 9.1, Neutrophils (%) (Auto) 87.6, Lymphocytes (%) (Auto) 6.1, Monocytes (%) (Auto) 5.7, Eosinophils (%) (Auto) 0.0, Basophils (%) (Auto) 0.1, Neutrophils # (Auto) 6.90, Lymphocytes # (Auto) 0.48, Monocytes # (Auto) 0.45, Eosinophils # (Auto) 0.00, Basophils # (Auto) 0.01 07/28/17 15:05 Test 07/28/17 15:05 07/28/17 16:16 07/28/17 16:20 07/28/17 16:35 White Blood Count 7.88 K/uL (4.8-10.8) Red Blood Count 5.10 M/uL (4.7-6.1) Hemoglobin 16.1 g/dL (14.0-18.0) Hematocrit 46.3 % (42-52) Mean Corpuscular Volume 90.8 fL (80-100) Mean Corpuscular Hemoglobin 31.6 pg (25-34) Mean Corpuscular Hemoglobin Concent 34.8 g/dl (32-36) Platelet Count 251 K/uL (130-400) Mean Platelet Volume 9.1 fL (7.4-10.4) Neutrophils (%) (Auto) 87.6 % Lymphocytes (%) (Auto) 6.1 % Monocytes (%) (Auto) 5.7 % Eosinophils (%) (Auto) 0.0 % Basophils (%) (Auto) 0.1 % Neutrophils # (Auto) 6.90 K/uL (1.4-6.5) Lymphocytes # (Auto) 0.48 K/uL (1.2-3.4) Monocytes # (Auto) 0.45 K/uL (0.11-0.59) Eosinophils # (Auto) 0.00 K/uL (0-0.5) Basophils # (Auto) 0.01 K/uL (0-0.2) RDW Standard Deviation 43.4 fL (36.4-46.3) RDW Coefficient of Variation 13.2 % (11.5-14.5) Immature Granulocyte % (Auto) 0.5 % Immature Granulocyte # (Auto) 0.04 K/uL (0.00-0.02) Anion Gap 9.0 mmol/L (3-11) Est Creatinine Clear Calc Drug Dose 79.6 ml/min Estimated GFR () 85.2 Estimated GFR (Non- 73.5 BUN/Creatinine Ratio 15.4 (10-20) Calcium Level 8.9 mg/dl (8.5-10.1) Total Bilirubin 0.7 mg/dl (0.2-1) Aspartate Amino Transf (AST/SGOT) 19 U/L (15-37) Alanine Aminotransferase (ALT/SGPT) 41 U/L (12-78) Alkaline Phosphatase 62 U/L (45-117) Total Protein 8.2 gm/dl (6.4-8.2) Albumin 3.9 gm/dl (3.4-5.0) Globulin 4.3 gm/dl (2.5-4.0) Albumin/Globulin Ratio 0.9 (0.9-2) Procalcitonin 0.22 ng/ml (0-0.5) Thyroid Stimulating Hormone (TSH) 1.320 uIu/ml (0.300-4.500) Free Thyroxine 0.94 ng/dl (0.80-1.60) Bedside Troponin I < 0.030 ng/ml (0-0.045) Lactic Acid Level 1.3 mmol/L (0.4-2.0) Influenza Type A Antigen Neg for Influ A (NEG) Influenza Type B Antigen Neg for Influ B (NEG) Medications Administered Medications (Trade) Dose Ordered Sig/Behzad Route Start Time Stop Time Status Last Admin Dose Admin Sodium Chloride 1,000 ml @ 999 mls/hr Q1H1M IV 07/28/17 16:00 07/28/17 18:00 DC 07/28/17 16:48 999 MLS/HR ECG Indication: chest pain Rhythm: sinus rhythm (rate of 98) Findings: other (no ST changes, normal QRS, no T wave inversion) Change: EKG personally reviewed by myself. Medical Decision The patient's care and disposition was discussed with Dr. Saucedo, Attending ED Physician. This is a 51M with Flu like illness and anxiety. Differential diagnosis include anxiety, viral illness, pneumonia, otitis media, gastroenteritis, influenza, bronchitis, thyroiditis, sepsis, UTI as well as others were entertained. Triage Nursing notes were reviewed. ED Course included an extensive history and physical exam, labs, EKG and imaging. CBC - normal EKG reviewed and similar to previous EKG. Trops - Negative CMP - normal Lactate - normal Procalcitonin - normal 3:15pm - Pt was seen and examined at bedside, HPI interrupted by patient needing to pass a BM. 3:30- Case was discussed with Dr. Saucedo and initial orders were placed. 3:40 - HPI was resumed, 2L of NSS was ordered. 4:45 - Pt was re-examined ,IVF are infusing, pt was sleeping when I entered the room, stated that he felt lousy. Labs results were discussed with the patient. 6:15 - Case was discussed with Dr. Saucedo and patient was OK'd for discharge for viral syndrome. The pt was informed about the findings as listed above. All questions were answered. Return instructions were outlined and the patient was discharged in good condition. The patient was referred to PCP for recheck of the current condition. Impression Primary Impression: Viral illness Departure Information Dispostion Home / Self-Care Condition GOOD Referrals Zeke Johnston M.D. (PCP) Patient Instructions ED Viral Syndrome, My [facility] Additional Instructions Your lab work including your white blood cell count, red blood cell count and complete metabolic panel was normal. Your chest X-ray was normal. Your EKG was also similar to a previous EKG that was taken. Your heart enzymes were also normal. Other blood work including a Procalcitonin level and a Lactate Level were normal. You were given 2L of fluids in the ER. Your symptoms are most likely from a viral illness. Please continue to rest and drink lots of fluids. Information on managing a viral illness will be provided for you on discharge. Please read this information carefully. Follow up with your PCP in 1-2 weeks. Resident Involvement: Resident Care Provided Care Provided: Adult ED
--- NOTE | 2017-07-28 15:47 | DIAGNOSTIC IMAGING REPORT ---
CHEST ONE VIEW PORTABLE CLINICAL HISTORY: SOB dyspnea COMPARISON STUDY: No previous studies for comparison. FINDINGS: The bones soft tissues and hemidiaphragms are normal. The cardiomediastinal silhouette is normal. The lungs are clear. The pulmonary vasculature is normal. IMPRESSION: Negative chest. The above report was generated using voice recognition software. It may contain grammatical, syntax or spelling errors. Electronically signed by: Wade Weber M.D. 07/28/2017 3:46 PM Dictated Date/Time: 07/28/2017 3:46 PM
[2017-07-28] MEDS ORDERED: FLX10 PO (15:53)
[2017-07-28] MEDS ORDERED: ONDA8TAB62 SL (15:53)
[2017-07-28 16:23] LABS: BASO % 0.1 %; BASO ABS # 0.01 K/uL (0-0.2); HEMATOCRIT 46.3 % (42-52); HEMOGLOBIN 16.1 g/dL (14.0-18.0); IG# 0.04 K/uL (0.00-0.02); LYMPH % 6.1 %; LYMPH ABS # 0.48 K/uL (1.2-3.4); MEAN CELL VOLUME 90.8 fL (80-100); MEAN CORPUSCULAR HEMOGLOBIN 31.6 pg (25-34); MEAN CORPUSCULAR HGB CONC 34.8 g/dl (32-36); MEAN PLATELET VOLUME 9.1 fL (7.4-10.4); MONO % 5.7 %; MONO ABS # 0.45 K/uL (0.11-0.59); NEUT % 87.6 %; PLATELET COUNT 251 K/uL (130-400); RED CELL DISTRIBUTION WIDTH CV 13.2 % (11.5-14.5); RED CELL DISTRIBUTION WIDTH SD 43.4 fL (36.4-46.3); WHITE BLOOD COUNT 7.88 K/uL (4.8-10.8)
[2017-07-28] MEDS: SODIUM CHLORIDE 0.9% 1000ML 1,000 ML IV SCH ×2 (16:36→16:48)
[2017-07-28 16:41] LABS: ALBUMIN 3.9 gm/dl (3.4-5.0); CALCIUM 8.9 mg/dl (8.5-10.1); CREATININE 1.16 mg/dl (0.60-1.40); POTASSIUM 3.6 mmol/L (3.5-5.1)
[2017-07-28 16:51] LABS: TOTAL PROTEIN 8.2 gm/dl (6.4-8.2)
[2017-07-28 17:18] LABS: INFLUENZA B ANTIGEN Neg for Influ B (NEG)
--- NOTE | 2017-07-28 17:26 | EMERGENCY ROOM VISIT NOTE ---
ED Visit Note First contact with patient: 15:17 Resident Physician Supervision Note: I was present with Dr. Crawford during the history and exam. I discussed the case with the resident and agree with the findings and plan as documented in the note. Documented By: Brad Saucedo
[2017-07-28 19:10] VITALS: BP 152/80; PULSE 88; TEMP 37; O2SAT 98
== END 2017-07-28 19:11 | disposition home or self-care (01) ==
LOC: C.EDB 15:08
DX: R68.83 Chills (without fever) (principal); R19.7 Diarrhea, unspecified; R07.9 Chest pain, unspecified; R52 Pain, unspecified; F41.9 Anxiety disorder, unspecified; Z83.3 Family history of diabetes mellitus; Z82.49 Family history of ischemic heart disease and other diseases of the circulatory system; Z87.891 Personal history of nicotine dependence

== ENCOUNTER → 2017-10-17 | Outpatient (CLI) | payer OTHER ==
[~2017-10-17] MED LIST changes: +FLX10 PO; +ONDA8TAB62 SL; -OXYC-57 PO
--- NOTE | 2017-10-17 09:54 | DIAGNOSTIC IMAGING REPORT ---
(BARIUM SWALLOW) ESOPHAGUS CLINICAL HISTORY: R07.0 Throat [id number] COMPARISON STUDY: None FLUOROSCOPY TIME: 1.0 minutes. FINDINGS: Patient initiates the swallowing function well. The esophagus is normal in course and caliber. Mild distal esophageal irritability and/or spasm. Gas esophageal junction is normal. Barium tablet passed easily to the stomach. IMPRESSION: 1. Mild distal esophageal spasm and/or irritability. Otherwise normal exam. The above report was generated using voice recognition software. It may contain grammatical, syntax or spelling errors. Electronically signed by: Wade Weber M.D. 10/17/2017 9:53 AM Dictated Date/Time: 10/17/2017 9:52 AM
== END | disposition home or self-care (01) ==
LOC: C.RAD 08:46
PROVIDERS: ATTEND Physician Assistant
DX: R07.0 Pain in throat (principal)

== ENCOUNTER 2017-11-25 14:58 | Emergency (ER) | payer OTHER ==
[~2017-11-25] VITALS: Ht 188 cm; Wt 102.6 kg
[2017-11-25 15:03] VITALS: TEMP 36.6; Ht 188 cm; Wt 102.6 kg
[2017-11-25] MEDS ORDERED: OXYCODONE/ACETAMINOPHEN 5-325 TAB PO STA (15:38)
[2017-11-25] MEDS ORDERED: PRT/20 PO (16:24)
[2017-11-25] MEDS ORDERED: RANI150T3 PO (16:24)
--- NOTE | 2017-11-25 16:29 | DIAGNOSTIC IMAGING REPORT ---
L-SPINE MIN 4 VIEWS ROUTINE CLINICAL HISTORY: Low back pain radiating into left lower extremity. COMPARISON: None FINDINGS: There are 5 lumbar type vertebra. Alignment of the lumbar spine is anatomic. Vertebral body heights are maintained. There is no fracture or osseous lesion. There is mild disc space narrowing with osteophytosis at L5-S1. There is mild multilevel facet arthrosis. IMPRESSION: 1. No lumbar spine fracture or subluxation. 2. Mild disc space narrowing and osteophytosis at L5-S1. 3. Mild multilevel facet arthrosis. 4. At least moderate atherosclerotic calcification of the abdominal aorta. Electronically signed by: Anand Gaspar M.D. 11/25/2017 4:28 PM Dictated Date/Time: 11/25/2017 4:26 PM
--- NOTE | 2017-11-25 16:38 | EMERGENCY ROOM VISIT NOTE ---
History First contact with patient: 15:07 Chief Complaint: BACK PAIN Stated Complaint: SEVERE BACK PAIN, LOWER LEFT LEG History of Present Illness The patient is a 51 year old male who presents to the Emergency Room via private vehicle accompanied by with complaints of "severe back pain, left lower leg". The patient states that he first noticed back pain Tuesday, and thought it was secondary to yardwork he may performed on Tuesday. He states that this was the first activity he had had in a while. He notes that when he was at his physical therapy appointment on Tuesday for his neck, he was told that he had inflammation in his low back. He notes he contacted his orthopedist , Dr. colton Yuen but they cannot see him until December 21. He was informed to either go to the family doctor or here for evaluation/pain control. The patient states that he has pain in his low back which radiates down the left leg and is a cramping sensation similar to the pain he had with the previous herniated disc. He notes he had surgery performed about 17 years ago. He is used Voltaren and Advil without relief. Massages help very minimally. He states that the pain is a 9/10 was sitting in 10/10 with walking. No leg numbness or weakness, bowel or bladder incontinence, urinary incontinence, abdominal pain. Review of Systems A complete 10-point Review of Systems was discussed with the patient, with pertinent positives and negatives listed in the History of Present Illness. All remaining Review of Systems questions can be considered negative unless otherwise specified. 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 Surgical Problems: (1) Previous back surgery Family History Diabetes mellitus FH: heart disease Hypertension Social History Smoking Status: Former Smoker Alcohol Use: occasionally Drug Use: none Marital Status: Occupation Status: employed Current/Historical Medications Scheduled Diclofenac (Voltaren), 50 MG PO BID Pantoprazole (Protonix), 20 MG PO BID Ranitidine Hcl (Zantac), 150 MG PO BID Scheduled PRN Cyclobenzaprine HCl (Cyclobenzaprine HCl), 10 MG PO Q6 PRN for Muscle Spasms Ondansetron Odt (Zofran Odt), 8 MG SL Q6H PRN for Nausea Oxycodone Ir (Roxicodone Ir), 1-2 TAB PO Q4H PRN for Pain Physical Exam Vital Signs Date Time Temp Pulse Resp B/P (MAP) Pulse Ox O2 Delivery O2 Flow Rate FiO2 11/25/17 20:17 54 18 115/63 95 Room Air 11/25/17 18:30 53 20 129/66 96 Room Air 11/25/17 17:25 54 16 130/62 97 Room Air 11/25/17 15:03 36.6 90 20 129/83 95 Room Air Physical Exam VITAL SIGNS - Vital signs and nursing notes were reviewed. Stable. GENERAL -51-year-old male appearing his stated age who is in no acute distress. Communicates well with provider and answers questions appropriately. SKIN - Without rashes. No meningeal or petechial rash. HEAD - NC/AT. EYES - PERRL with EOMI bilaterally. Sclera anicteric. EARS - No deformities of external structures noted on gross examination bilaterally. NOSE - Midline and without cyanosis. No epistaxis or purulent drainage noted. MOUTH/OROPHARYNX - Without perioral cyanosis LUNGS - Chest wall symmetric without accessory muscle use, intercostals retractions, or central cyanosis. Normal vesicular breath sounds CTA B/L. No wheezes, rales, or rhonchi appreciated. CARDIAC - RRR with S1/S2. No murmur, rubs, or gallops appreciated. ABDOMEN - Abdominal contour normal without pulsations or visible masses. BS normoactive all four quadrants. No tenderness, palpable masses, hepatosplenomegaly, or ascites noted. MUSCULOSKELETAL: There is reducible tenderness in the inferior aspect of the patient's lumbar spine region radiating down his left leg. Positive straight leg raise test on the left. Negative on the right. EXTREMITIES - No clubbing or peripheral cyanosis. No pretibial edema present. + 5/5 strength noted in UE/LE bilaterally. NEUROLOGIC - Cranial nerves II through XII grossly intact. Sensory intact to light touch throughout. Patellar reflexes +2/4. PSYCH - A&O, and cooperates fully with examiner. Pt is very pleasant and interacts well with examiner. Medical Decision & Procedures ER Provider Diagnostic Interpretation: L-SPINE MIN 4 VIEWS ROUTINE CLINICAL HISTORY: Low back pain radiating into left lower extremity. COMPARISON: None FINDINGS: There are 5 lumbar type vertebra. Alignment of the lumbar spine is anatomic. Vertebral body heights are maintained. There is no fracture or osseous lesion. There is mild disc space narrowing with osteophytosis at L5-S1. There is mild multilevel facet arthrosis. IMPRESSION: 1. No lumbar spine fracture or subluxation. 2. Mild disc space narrowing and osteophytosis at L5-S1. 3. Mild multilevel facet arthrosis. 4. At least moderate atherosclerotic calcification of the abdominal aorta. Electronically signed by: Anand Gaspar M.D. 11/25/2017 4:28 PM Dictated Date/Time: 11/25/2017 4:26 PM [~ rep ct add3]] ABDOMEN AND PELVIS CTA HISTORY: Back pain. TECHNIQUE: Multiaxial CT images of the abdomen and pelvis were performed following the use of intravenous contrast to evaluate the major arterial structures. Maximal intensity projection images were also obtained. COMPARISON STUDY: None. FINDINGS: The lung bases are clear. No pneumoperitoneum. No pneumatosis. No fractures within the visualized osseous structures. Hepatic steatosis. The gallbladder, pancreas, spleen, adrenal glands, and kidneys are unremarkable. No hydronephrosis. No retroperitoneal lymphadenopathy. There is a left circumaortic renal vein. Mild bladder wall thickening is likely due to underdistention. No bowel wall thickening or obstruction. Normal appendix. The abdominal aorta is normal in course and caliber with no evidence for dissection. The celiac artery, superior mesenteric artery, inferior mesenteric artery, and bilateral renal arteries are widely patent. Mild calcified plaque within the abdominal aorta and iliac arteries. Best seen on image 193 there is a 7 mm right renal artery aneurysm. IMPRESSION: 1. No significant stenosis or occlusion within the abdominal aorta or mesenteric vessels. 2. A 7 mm right renal artery aneurysm. 3. No bowel wall thickening or obstruction. 4. Normal appendix. 5. Hepatic steatosis. Electronically signed by: Nicholas Raphael M.D. 11/25/2017 6:13 PM Dictated Date/Time: 11/25/2017 5:57 PM Laboratory Results 11/25/17 16:55 Red Blood Count 4.60, Mean Corpuscular Volume 88.7, Mean Corpuscular Hemoglobin 30.9, Mean Corpuscular Hemoglobin Concent 34.8, Mean Platelet Volume 8.5, Neutrophils (%) (Auto) 54.5, Lymphocytes (%) (Auto) 32.6, Monocytes (%) (Auto) 9.4, Eosinophils (%) (Auto) 2.6, Basophils (%) (Auto) 0.7, Neutrophils # (Auto) 3.19, Lymphocytes # (Auto) 1.91, Monocytes # (Auto) 0.55, Eosinophils # (Auto) 0.15, Basophils # (Auto) 0.04 11/25/17 16:55 Test 11/25/17 16:55 11/25/17 16:57 White Blood Count 5.85 K/uL (4.8-10.8) Red Blood Count 4.60 M/uL (4.7-6.1) Hemoglobin 14.2 g/dL (14.0-18.0) Hematocrit 40.8 % (42-52) Mean Corpuscular Volume 88.7 fL (80-100) Mean Corpuscular Hemoglobin 30.9 pg (25-34) Mean Corpuscular Hemoglobin Concent 34.8 g/dl (32-36) Platelet Count 286 K/uL (130-400) Mean Platelet Volume 8.5 fL (7.4-10.4) Neutrophils (%) (Auto) 54.5 % Lymphocytes (%) (Auto) 32.6 % Monocytes (%) (Auto) 9.4 % Eosinophils (%) (Auto) 2.6 % Basophils (%) (Auto) 0.7 % Neutrophils # (Auto) 3.19 K/uL (1.4-6.5) Lymphocytes # (Auto) 1.91 K/uL (1.2-3.4) Monocytes # (Auto) 0.55 K/uL (0.11-0.59) Eosinophils # (Auto) 0.15 K/uL (0-0.5) Basophils # (Auto) 0.04 K/uL (0-0.2) RDW Standard Deviation 40.4 fL (36.4-46.3) RDW Coefficient of Variation 12.6 % (11.5-14.5) Immature Granulocyte % (Auto) 0.2 % Immature Granulocyte # (Auto) 0.01 K/uL (0.00-0.02) Est Creatinine Clear Calc Drug Dose 117.8 ml/min Estimated GFR () 105.8 Estimated GFR (Non- 91.3 BUN/Creatinine Ratio 11.3 (10-20) Calcium Level 8.7 mg/dl (8.5-10.1) Troponin I < 0.015 ng/ml (0-0.045) Bedside Hemoglobin 14.3 g/dl (14.0-18.0) Bedside Hematocrit 42 % (42-52) Bedside Sodium 137 mEq/L (135-144) Bedside Potassium 4.1 mEq/L (3.3-5.0) Bedside Chloride 102 mEq/L (101-112) Bedside Total CO2 25 mEq/l (24-31) Anion Gap 16.0 mmol/L (16-25) Bedside Blood Urea Nitrogen 11 mg/dl (7-18) Bedside Creatinine 1.0 mg/dl (0.6-1.3) Bedside Glucose (other) 89 mg/dl (70-99) Bedside Ionized Calcium (Tho) 1.15 mmol/l (1.12-1.32) Medications Administered Medications (Trade) Dose Ordered Sig/Behzad Route Start Time Stop Time Status Last Admin Dose Admin Oxycodone/ Acetaminophen (Percocet 5-325mg Tab) 1 tab NOW STAT PO 11/25/17 15:38 11/25/17 15:41 DC 11/25/17 15:56 1 TAB Oxycodone HCl (Roxicodone Immediate Rel 5MG Home Pack) 1 homepack UD STAT PO 11/25/17 20:11 11/25/17 20:12 DC 11/25/17 20:11 1 HOMEPACK Medical Decision Patient was seen and evaluated as above in room D9. Review was performed of nursing notes and vital signs. After obtaining a thorough history and physical examination the above work up was performed. He presents to us with low back pain which I suspect to be from likely a bulging disc. Clinically he presents with out any findings of cauda equina syndrome. I did elect to obtain x-rays, and provided him with a Percocet tablet. Was reevaluated and feeling slightly better. There is a moderate amount of plaque/calcification in the aorta noted on the x-ray. Although this is certainly a chronic finding, secondary to his presentation, the concern is that he could have a retroperitoneal bleed or AAA. Decision was made to obtain a CTA of the patient's abdomen and pelvis. Results as above. There is a 7 mm right renal artery aneurysm. I discussed this with the attending physician and subsequently the vascular surgeon Dr. Joel. Patient will likely require outpatient follow-up with nothing emergent here today. He appears stable for outpatient management. At the time he was about to be discharged he did note that earlier today when he woke up he had some chest pain/pressure and shortness of breath. This subsided. I like to do an EKG at that time and it revealed normal sinus rhythm, rate of 60 bpm. There is an incomplete right bundle branch block without QT prolongation. No evidence of IA. Troponin was negative, and in the setting of greater than 6 hours from the onset of his symptoms this is likely not cardiac in nature. It is not exertional. It was at one time when he woke up this morning. He has had this before and believes it is reflux. He is to follow with the family doctor or return with worsening. He had no point during his stay here exhibits any sign or symptom concerning for that of ACS. He is to follow with the family doctor as well for the back and the regulatory specialist. I did enlist the help of our bottle caser to establish a sooner appointment for the patient which is currently in the process. He will be given a short prescription of oxycodone and was thoroughly educated upon risks. He will not be driving today. He was educated upon worrisome symptoms which to return. The patient was educated upon management, had questions answered prior to discharge, and was discharged home in good condition. Case was discussed with the attending physician. I attest that I have personally reviewed the patient medication list. I attest that I have reviewed the patient's blood pressure and it was found to be elevated likely secondary to situation. In the evaluation and treatment of this patient the following differential diagnoses were entertained: IA, PE, AAA, lumbar radiculopathy, strain, sprain, fracture, dislocation. Impression Primary Impression: Radicular low back pain Departure Information Dispostion Home / Self-Care Condition GOOD Prescriptions Oxycodone Ir (Roxicodone Ir) 5 Mg Tab 1-2 TAB PO Q4H Y for Pain, #20 TAB For Initial Treatment Prov: Lenard Estrada PA-C 11/25/17 Referrals Zeke Johnston M.D. (PCP) Brandan Joel M.D. Patient Instructions [facility] Additional Instructions You have been treated in the Emergency Department for Back Pain. You have received pain medicine in the emergency department which impairs your ability to operate a vehicle. It is illegal for you to drive after receiving these medicines. You have been prescribed Oxy IR to be used for pain control. This is a narcotic medication. You cannot drive or consume alcohol while on this medicine. This medicine should only be used for pain that cannot be controlled with over-the- counter pain medicines. I recommend taking this with a stool softener. For pain control, you can use the following [id number] medicines - Regular strength (325mg/tab) Tylenol (acetaminophen) 2 tabs every 4-6 hours as needed. Do not exceed 12 tablets in a 24 hour period. Avoid taking more than 3 grams (3000 mg) of Tylenol per day. This includes any other sources of acetaminophen you may take on a regular basis. - Regular strength (200 mg/tab) Advil (ibuprofen) 1-2 tabs every 4-6 hours as needed. Do not exceed a dose of 3200 mg per day. If this is an acute injury, ice can be applied to the area of pain for the first 3 days to help decrease pain and inflammation. After the first 3 days, a heating pad can be used over the area for continued soothing relief. You should schedule a follow-up appointment in 2-3 days with your Primary Care Provider for further evaluation and treatment of your back pain. Please also follow-up regarding your renal artery aneurysm, we spoke with Dr. Joel here and you may call his office to schedule follow-up with the family doctor. You may need a repeat ultrasound in one year of that area. Please also follow-up with the family doctor regarding the chest pain that you noted. Return to the Emergency Department if your current symptoms worsen despite treatment course outlined above, or if you develop any of the following symptoms : intractable pain despite aforementioned treatment course, loss of control of your bowel or bladder, numbness or tingling in your groin, or development of a fever. ABDOMEN AND PELVIS CTA HISTORY: Back pain. TECHNIQUE: Multiaxial CT images of the abdomen and pelvis were performed following the use of intravenous contrast to evaluate the major arterial structures. Maximal intensity projection images were also obtained. COMPARISON STUDY: None. FINDINGS: The lung bases are clear. No pneumoperitoneum. No pneumatosis. No fractures within the visualized osseous structures. Hepatic steatosis. The gallbladder, pancreas, spleen, adrenal glands, and kidneys are unremarkable. No hydronephrosis. No retroperitoneal lymphadenopathy. There is a left circumaortic renal vein. Mild bladder wall thickening is likely due to underdistention. No bowel wall thickening or obstruction. Normal appendix. The abdominal aorta is normal in course and caliber with no evidence for dissection. The celiac artery, superior mesenteric artery, inferior mesenteric artery, and bilateral renal arteries are widely patent. Mild calcified plaque within the abdominal aorta and iliac arteries. Best seen on image 193 there is a 7 mm right renal artery aneurysm.
[2017-11-25] MEDS ORDERED: OPTIRAY 320 IV PRN (17:00)
[2017-11-25 17:11] LABS: BASO % 0.7 %; BASO ABS # 0.04 K/uL (0-0.2); EOS % 2.6 %; EOS ABS # 0.15 K/uL (0-0.5); HEMATOCRIT 40.8 % (42-52); HEMOGLOBIN 14.2 g/dL (14.0-18.0); IG# 0.01 K/uL (0.00-0.02); LYMPH % 32.6 %; LYMPH ABS # 1.91 K/uL (1.2-3.4); MEAN CELL VOLUME 88.7 fL (80-100); MEAN CORPUSCULAR HEMOGLOBIN 30.9 pg (25-34); MEAN CORPUSCULAR HGB CONC 34.8 g/dl (32-36); MEAN PLATELET VOLUME 8.5 fL (7.4-10.4); MONO % 9.4 %; MONO ABS # 0.55 K/uL (0.11-0.59); NEUT % 54.5 %; NEUT ABS # 3.19 K/uL (1.4-6.5); PLATELET COUNT 286 K/uL (130-400); RED CELL DISTRIBUTION WIDTH CV 12.6 % (11.5-14.5); RED CELL DISTRIBUTION WIDTH SD 40.4 fL (36.4-46.3); WHITE BLOOD COUNT 5.85 K/uL (4.8-10.8)
[2017-11-25 17:16] LABS: ISTAT IONIZED CALCIUM 1.15 mmol/l (1.12-1.32); ISTAT POTASSIUM 4.1 mEq/L (3.3-5.0)
[2017-11-25 17:28] LABS: CALCIUM 8.7 mg/dl (8.5-10.1); CREATININE 0.97 mg/dl (0.60-1.40)
--- NOTE | 2017-11-25 18:14 | DIAGNOSTIC IMAGING REPORT ---
ABDOMEN AND PELVIS CTA HISTORY: Back pain. TECHNIQUE: Multiaxial CT images of the abdomen and pelvis were performed following the use of intravenous contrast to evaluate the major arterial structures. Maximal intensity projection images were also obtained. COMPARISON STUDY: None. FINDINGS: The lung bases are clear. No pneumoperitoneum. No pneumatosis. No fractures within the visualized osseous structures. Hepatic steatosis. The gallbladder, pancreas, spleen, adrenal glands, and kidneys are unremarkable. No hydronephrosis. No retroperitoneal lymphadenopathy. There is a left circumaortic renal vein. Mild bladder wall thickening is likely due to underdistention. No bowel wall thickening or obstruction. Normal appendix. The abdominal aorta is normal in course and caliber with no evidence for dissection. The celiac artery, superior mesenteric artery, inferior mesenteric artery, and bilateral renal arteries are widely patent. Mild calcified plaque within the abdominal aorta and iliac arteries. Best seen on image 193 there is a 7 mm right renal artery aneurysm. IMPRESSION: 1. No significant stenosis or occlusion within the abdominal aorta or mesenteric vessels. 2. A 7 mm right renal artery aneurysm. 3. No bowel wall thickening or obstruction. 4. Normal appendix. 5. Hepatic steatosis. Electronically signed by: Nicholas Raphael M.D. 11/25/2017 6:13 PM Dictated Date/Time: 11/25/2017 5:57 PM
[2017-11-25] MEDS ORDERED: OXYC1TAB3 PO (20:09)
[2017-11-25] MEDS ORDERED: OXYCODONE IR HOME PACK PO STA (20:11)
[2017-11-25 20:17] VITALS: BP 115/63; PULSE 54; O2SAT 95
== END 2017-11-25 20:35 | disposition home or self-care (01) ==
LOC: C.EDB 14:59 → C.EDD 20:35
DX: M54.16 Radiculopathy, lumbar region (principal); I72.2 Aneurysm of renal artery; R07.89 Other chest pain; R06.02 Shortness of breath; K21.9 Gastro-esophageal reflux disease without esophagitis; Z98.890 Other specified postprocedural states; Z87.891 Personal history of nicotine dependence

== ENCOUNTER → 2018-01-23 | Outpatient (CLI) | payer OTHER ==
[~2018-01-23] MED LIST changes: +OXYC-90 PO; +PRT/20 PO; +RANI150T3 PO
[2018-01-23 13:19] LABS: BASO % 0.6 %; BASO ABS # 0.03 K/uL (0-0.2); EOS ABS # 0.21 K/uL (0-0.5); HEMATOCRIT 43.7 % (42-52); HEMOGLOBIN 14.7 g/dL (14.0-18.0); IG# 0.01 K/uL (0.00-0.02); LYMPH % 37.2 %; LYMPH ABS # 1.97 K/uL (1.2-3.4); MEAN CELL VOLUME 91.6 fL (80-100); MEAN CORPUSCULAR HEMOGLOBIN 30.8 pg (25-34); MEAN CORPUSCULAR HGB CONC 33.6 g/dl (32-36); MEAN PLATELET VOLUME 8.9 fL (7.4-10.4); MONO ABS # 0.37 K/uL (0.11-0.59); NEUT ABS # 2.71 K/uL (1.4-6.5); PLATELET COUNT 295 K/uL (130-400); RED CELL DISTRIBUTION WIDTH CV 13.1 % (11.5-14.5); RED CELL DISTRIBUTION WIDTH SD 43.7 fL (36.4-46.3)
[2018-01-23 13:38] LABS: ALBUMIN 3.6 gm/dl (3.4-5.0); ALKALINE PHOSPHATASE 70 U/L (45-117); ALT/SGPT 27 U/L (12-78); AST/SGOT 18 U/L (15-37); BLOOD UREA NITROGEN 11 mg/dl (7-18); CALCIUM 8.7 mg/dl (8.5-10.1); CARBON DIOXIDE 27 mmol/L (21-32); CHOLESTEROL 221 mg/dl (0-200); GLUCOSE 108 mg/dl (70-99); LDL CHOLESTEROL CALCULATED 155 mg/dl; POTASSIUM 4.1 mmol/L (3.5-5.1); SODIUM 138 mmol/L (136-145); TOTAL PROTEIN 7.5 gm/dl (6.4-8.2)
== END | disposition home or self-care (01) ==
LOC: C.LAB1850 12:00
PROVIDERS: ATTEND Internal Medicine
DX: Z00.00 Encounter for general adult medical examination without abnormal findings (principal); E88.9 Metabolic disorder, unspecified; K76.0 Fatty (change of) liver, not elsewhere classified

== ENCOUNTER 2018-02-26 04:35 | Emergency (ER) | payer OTHER ==
[~2018-02-26 04:35] MED LIST changes: -DICL50TA3 PO; -OXYC-90 PO; -PRT/20 PO; +SILD100T PO; +VLT75 PO
[2018-02-26] MEDS ORDERED: ONDANSETRON INJ 2 MG/ML 2 ML VIAL ONE (04:44)
[2018-02-26] MEDS ORDERED: KETOROLAC TROMETHAMINE 15 MG/ML VIAL IV STA (05:04)
[2018-02-26] MEDS ORDERED: SODIUM CHLORIDE 0.9% 1000ML 1,000 ML IV STA (05:21)
--- NOTE | 2018-02-26 06:02 | EMERGENCY ROOM VISIT NOTE ---
History First contact with patient: 04:52 Chief Complaint: ANXIETY Stated Complaint: ANXIETY ATTACK, DIFFICULTY BREATHING History of Present Illness The patient is a 52 year old male who presents to the Emergency Room with complaints of an anxiety attack. The patient states that he began having an anxiety attack approximately 1 hour prior to arrival. He states that he got some very depressing news about his daughter yesterday. She is mentally challenged living in a chcf and is apparently looking to become emancipated. He states that tonight, he was thinking about this and started to have a panic attack. He states that he has had multiple panic attacks in the past and this feels similar to those. He develops nausea, diarrhea and felt like he could not breathe. He took 1 tablet of Lorazepam and 1 tablet of Zofran. He was still not feeling well so he had his drive him here. He states that he is feeling significantly better at this time. He does report some mild abdominal cramping which he believes is due to the vomiting. He denies any further difficulty breathing. He denies any chest pain or syncope. He denies any suicidal or homicidal ideations. He does feel that on a regular basis, his anxiety is fairly well controlled. Review of Systems A complete 10 point review of systems was reviewed with the patient with pertinent positives and negatives as per history of present illness. All else were negative. 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 Surgical Problems: (1) Previous back surgery Family History Diabetes mellitus FH: heart disease Hypertension Social History Smoking Status: Former Smoker Alcohol Use: occasionally Drug Use: none Marital Status: Occupation Status: employed Current/Historical Medications Scheduled Diclofenac Sod (Diclofenac Sodium Dr), 1 TAB PO BID Ranitidine Hcl (Zantac), 150 MG PO BID Sildenafil Citrate (Viagra), 100 MG PO PRN Scheduled PRN Cyclobenzaprine HCl (Cyclobenzaprine HCl), 10 MG PO Q6 PRN for Muscle Spasms Ondansetron Odt (Zofran Odt), 8 MG SL Q6H PRN for Nausea Physical Exam Vital Signs Date Time Temp Pulse Resp B/P (MAP) Pulse Ox O2 Delivery O2 Flow Rate FiO2 02/26/18 08:27 64 18 132/60 95 Room Air 02/26/18 07:36 67 02/26/18 06:33 36.4 75 13 114/53 95 Room Air 02/26/18 05:07 65 02/26/18 04:36 97 18 99 Room Air Physical Exam VITALS: Vitals are noted on the nurse's note and reviewed by myself. Vital signs stable. GENERAL: This is a 52-year-old male, in no acute distress, mildly anxious appearing, nondiaphoretic, well-developed well-nourished. HEAD: Normocephalic atraumatic. EARS: External auditory canals clear, tympanic membranes pearly castanon without erythema or effusion bilaterally. EYES: Pupils equal round and reactive to light and accommodation. Extraocular movements intact. MOUTH: Mucous membranes moist. Tonsils are not enlarged. Pharynx without erythema or exudate. NECK: Supple without nuchal rigidity. No lymphadenopathy. HEART: Regular rate and rhythm without murmurs gallops or rubs. LUNGS: Clear to auscultation bilaterally without wheezes, rales or rhonchi. ABDOMEN: Positive bowel sounds x 4. Normal tympanic percussion. Soft, nontender to palpation. NEURO: Patient was alert and oriented to person place and time. Medical Decision & Procedures Medications Administered Medications (Trade) Dose Ordered Sig/Behzad Route Start Time Stop Time Status Last Admin Dose Admin Ondansetron HCl (Zofran Inj) 4 mg STK-MED ONCE .ROUTE 02/26/18 04:44 02/26/18 04:45 DC 02/26/18 04:47 4 MG Ketorolac Tromethamine (Toradol Inj) 15 mg NOW STAT IV 02/26/18 05:04 02/26/18 05:05 DC 02/26/18 05:08 15 MG Sodium Chloride 1,000 ml @ 999 mls/hr Q1H1M STAT IV 02/26/18 05:21 02/26/18 06:21 DC 02/26/18 05:26 999 MLS/HR Medical Decision Differential diagnosis includes anxiety attack, generalized anxiety, depression , among others. The patient was evaluated as above. He presents with symptoms of a typical panic attack for him. He took 1 mg lorazepam at home and by the time he was seen by me, was already improving. He was given IV fluids and Toradol for his abdominal cramping. He was reevaluated and stated that he felt much better. He does feel that his anxiety is well controlled on a regular basis. It seems that these symptoms were triggered by receiving some bad news. He was encouraged to follow-up with his primary care provider for a recheck and to discuss his anxiety. He verbalized understanding of my assessment and treatment plan and was discharged home in good condition with his . Medication Reconcilliation Current Medication List: was personally reviewed by me Blood Pressure Screening Patient's blood pressure: Normal blood pressure Impression Primary Impression: Acute anxiety Departure Information Dispostion Home / Self-Care Condition GOOD Referrals Zeke Johnston M.D. (PCP) Patient Instructions [facility] Additional Instructions Follow-up with your primary care provider regarding your anxiety. Take the Ativan as prescribed as needed for any further symptoms. Return to the emergency department with any worsening or new/concerning symptoms.
[2018-02-26 06:33] VITALS: TEMP 36.4
[2018-02-26 08:27] VITALS: BP 132/60; PULSE 64; O2SAT 95
== END 2018-02-26 08:32 | disposition home or self-care (01) ==
LOC: C.EDB 04:36 → C.EDC 08:32
DX: F41.9 Anxiety disorder, unspecified (principal); K21.9 Gastro-esophageal reflux disease without esophagitis; M48.02 Spinal stenosis, cervical region; M51.36 Other intervertebral disc degeneration, lumbar region; Z87.891 Personal history of nicotine dependence; Z79.899 Other long term (current) drug therapy